=== PATIENT | female | born 1930 | race Caucasian/White ===

== ENCOUNTER 2017-02-11 10:58 | Emergency (ER) | payer BC, MEDICARE ==
[~2017-02-11] VITALS: Ht 162.6 cm; Wt 70.9 kg
[~2017-02-11 10:58] MED LIST: DIAZ-90 PO; DOCU-144 PO; ESOM40CA PO; HYDR-3498 PO; LEVO112T2 PO; MECL12.574 PO; MULT-761 PO; PRED20TA PO; SAXA5TAB2 PO; [UNRECOGNIZED DRUG - CODE]
[2017-02-11 11:01] VITALS: Ht 162.6 cm; Wt 70.9 kg
--- NOTE | 2017-02-11 11:46 | ERD ---
ER Documentation Chief Complaint Chief Complaint back pain, posterior head and right leg pain s/p fall 3 days ago HPI 86-year-old female, with history of ventricular shunt, presents to the emergency department complaining of mild persistent headache after a mechanical fall that occurred 3 days ago. The patient landed on her buttocks and hit her head without loss of consciousness. The patient denies blurred vision, nausea, vomiting. She has not tried any medications at this time. She is also complaining of mild right leg pain after the fall, 3 out of 10, but full range of motion. The patient has been ambulating without any problem and has been in her usual state of health but her PCP recommended her to come to the emergency department for a CAT scan to rule out SURVEILLANCE MONITOR bleeding ROS SYSTEMIC symptoms: no fever, chills, no night sweats, no weight loss EYE symptoms: No blurred vision, no eye discharge OTOLARYNGEAL symptoms: No hearing loss. No ear pain, no sore throat CARDIOVASCULAR symptoms: No chest pain or discomfort, no palpitations. PULMONARY symptoms: No dyspnea, no cough, no wheezing. GASTROINTESTINAL symptoms: No abdominal pain, no nausea, no vomiting, no diarrhea MUSCULOSKELETAL symptoms: No arthralgias, no muscle aches. NEUROLOGY symptoms: No confusion, no syncope, no numbness or tingling. SKIN: No rashes Medications Home Meds Active Scripts Acetaminophen* (Tylenol*) 325 Mg Tablet, 1 TAB PO Q6 Y for PAIN AND OR ELEVATED TEMP, #20 TAB Prov:DELANEY ARCOS MD 02/11/17 Meclizine Hcl* (Antivert*) 12.5 Mg Tab, 12.5 MG PO Q6H Y for DIZZINESS, #10 TAB Prov:HANG VAUGHN 08/04/15 Prednisone* (Prednisone*) 20 Mg Tab, 60 MG PO DAILY for 5 Days, TAB Prov:ANTONIETA BLACKBURN 04/23/15 Diazepam* (Valium*) 5 Mg Tablet, 5 MG PO Q8 Y for MUSCLE SPASMS, #10 TAB Prov:ANTONIETA BLACKBURN 04/23/15 Docusate Sodium* (Colace*) 100 Mg Capsule, 100 MG PO TID, #30 CAP Prov:ANTONIETA BLACKBURN 04/23/15 Hydrocodone Bit-Acetaminophen* (Sandy*) 5-325 Mg Tab, 1 TAB PO Q6 Y for PAIN, # 20 TAB Prov:ANTONIETA BLACKBURN 04/23/15 Reported Medications Multivitamin (MULTI VITAMIN DAILY) 1 Each Tablet, 1 TAB PO DAILY, TAB 04/23/15 Esomeprazole Mag Trihydrate (Nexium) 40 Mg Capsule.dr, 40 MG PO DAILY, #30 CAP 04/23/15 Levothyroxine Sodium* (Synthroid*) 112 Mcg Tablet, 112 MCG PO BEFORE BREAKFAST, #30 TAB 04/23/15 Saxagliptin Hcl* (Onglyza*) 5 Mg Tablet, 5 MG PO DAILY, TAB 04/23/15 Sodium Fluoride/Ca Carbonate (Florical Capsule) 1 Cap Capsule 09/30/09 Allergies Allergies: Coded Allergies: Sulfa (Sulfonamide Antibiotics) (Verified Allergy, Unknown, 04/23/15) PMhx/Soc History of Surgery: Yes (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 Alert and fully oriented. EYES: PERRLA, EOMI, Sclera and conjunctiva appear normal. EARS: Canals clear, tympanic membranes WNL THROAT: Normal oropharynx. NECK: Supple, No lymphadenopathy. Full ROM without pain or tenderness. HEART: RRR, no rubs, murmurs, clicks or gallops. LUNGS: Clear to auscultation. ABDOMEN: Soft, non-tender without masses or hepatosplenomegaly. EXTREMITIES: No edema bilaterally. BACK: Full ROM, no deformity, normal back exam NEURO: Cranial nerves grossly intact, no motor or sensory deficit Results [address] [address] Radiology Main Line: [phone] DIAGNOSTIC IMAGING REPORT Patient: GRAYSON STARR : 1930 Age: 86 Sex: F MR #: [id number] DOS: 02/11/17 1152 Ordering MD: DELANEY ARCOS MD Location: [facility] Room/Bed: PROCEDURE: CT Brain without contrast. CLINICAL INDICATION: Headaches. Neurologic deficit TECHNIQUE: A CT of the brain was performed on multidetector high-resolution CT scanner utilizing axial sections from the skull base through the vertex without contrast. One or more of the following dose reduction techniques were used: Automated exposure control, Adjustment of the mA and/or kV according to patient size, and/or use of iterative reconstruction technique. DICOM images are available. DOSE: CTDI = 45 mGy and the DLP = 720 mGy-cm. COMPARISON: Head CT 08/04/2015 FINDINGS: Right transfrontal ventricular shunt traverses the right lateral ventricle with tip in the frontal horn left lateral ventricle. Stable size ventricles when compared to 08/04/2015. Bifrontal horn lateral ventricular diameter measures 38 mm, unchanged. No acute intracranial hemorrhage, significant mass effect or midline shift. Patchy hypoattenuation of the cerebral white matter is compatible with chronic microvascular ischemic changes. Vascular calcifications. Mild cerebral volume loss. No significant opacification of the visualized paranasal sinuses or left mastoids. Right mastoidectomy changes with residual fluid in the right mastoid. IMPRESSION: No significant change identified since 08/04/2015. No acute intracranial findings. 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 Stable size ventricles with shunt in place. RPTAT: AA .Jacoby Albrecht MD, MD Date Time Electronically viewed and signed by .Jacoby Albrecht MD, MD on 02/11/2017 12:37 .T/ CC: DELANEY ARCOS MD Procedures/[facility] 86y/o female patient ventricular shunt, presents to the ED c/o headache for 3 days. Vital signs stable, Physical exam in normal limits, neurovascular exam intact. Differential diagnosis include but not limited to: Head concussion, contusion, intracranial hemorrhage. Low suspicion for severe SURVEILLANCE MONITOR trauma, since neurovascular exam is intact Pertinent Data: Radiology: CT head: IMPRESSION: No significant change identified since 08/04/2015. No acute intracranial findings. 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 Stable size ventricles with shunt in place. Physical examination and clinical presentation consistent most likely with mechanical fall with mild head contusion. During the ED course the patient remained stable, no new complaints Results and clinical impression discussed with patient who agrees with management. The patient is stable to be treated outpatient and will be discharged home with a Rx for acetaminophen and close monitoring Side effects of prescribed medications (headache, rash, nausea, vomiting, diarrhea) were reviewed. The patient was instructed to follow up with the primary care provider in the next 48h. If symptoms persist, worsen or new symptoms develop, then patient should return to the ED immediately. Instructions explained and given to patient in German with acknowledgment and demonstrated understanding. Disclaimer: Inadvertent spelling and grammatical errors are likely due to EHR/ dictation software use and do not reflect on the overall quality of patient care. Also, please note that the electronic time recorded on this note does not necessarily reflect the actual time of the patient encounter. Departure Diagnosis: Primary Impression: Head contusion Additional Impression: Fall with no significant injury Condition: Stable DELANEY ARCOS MD Feb 11, 2017 11:46
--- NOTE | 2017-02-11 12:37 | RADRPT ---
PROCEDURE: CT Brain without contrast. CLINICAL INDICATION: Headaches. Neurologic deficit TECHNIQUE: A CT of the brain was performed on multidetector high-resolution CT scanner utilizing a xial sections from the skull base through the vertex without contrast. One or more of the following dose reduction techniques were used: Automated exposure control, Adjustment of the mA and/or kV acc ording to patient size, and/or use of iterative reconstruction technique. DICOM images are available . DOSE: CTDI = 45 mGy and the DLP = 720 mGy-cm. COMPARISON: Head CT 08/04/2015 FINDINGS: Right transfrontal ventricular shunt traverses the right lateral ventricle with tip in the frontal h orn left lateral ventricle. Stable size ventricles when compared to 08/04/2015. Bifrontal horn later al ventricular diameter measures 38 mm, unchanged. No acute intracranial hemorrhage, significant mas s effect or midline shift. Patchy hypoattenuation of the cerebral white matter is compatible with ch ronic microvascular ischemic changes. Vascular calcifications. Mild cerebral volume loss. No sign ificant opacification of the visualized paranasal sinuses or left mastoids. Right mastoidectomy pereira ges with residual fluid in the right mastoid. IMPRESSION: No significant change identified since 08/04/2015. No acute intracranial findings. 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 Stable size ventricles with shunt in place. RPTAT: AA .Jacoby Albrecht MD, MD Date Time Electronically viewed and signed by .Jacoby Albrecht MD, MD on 02/11/2017 12:37 .T/
[2017-02-11] MEDS ORDERED: ACET325T33 PO (13:25)
[2017-02-11 13:50] VITALS: BP 130/82; PULSE 78; RESP 18; TEMP 98
== END 2017-02-11 13:50 | disposition home or self-care (01) ==
LOC: FTE 10:58
DX: S00.93XA Contusion of unspecified part of head, initial encounter (principal); W18.39XA Other fall on same level, initial encounter; Y92.9 Unspecified place or not applicable; Z85.3 Personal history of malignant neoplasm of breast
CPT/HCPCS: 70450

== ENCOUNTER 2018-12-13 19:31 | Emergency (ER) | payer MEDICARE, OTHER ==
[~2018-12-13] VITALS: Ht 167.6 cm; Wt 70.3 kg
[~2018-12-13 19:31] MED LIST changes: +ACET325T33 PO; +AMOX1TAB10 PO; +CYCL1DRO OP; -DIAZ-90 PO; +DIAZ5TAB PO; +INSU300I SQ; +LEVO112T57 ORAL; +METF-849 PO; +METR500T PO; +NITR-58 PO; +OLOP2.5D OP; +ONDA4TAB8 PO; +TIMO5SOL9 OP
[2018-12-13 19:34] VITALS: Ht 167.6 cm; Wt 70.3 kg
[2018-12-13] MEDS ORDERED: AMOXICILLIN/CLAV 875 MG TAB PO ONE (23:00)
[2018-12-13] MEDS ORDERED: metroNIDAZOLE 500 MG TAB PO ONE (23:00)
[2018-12-13 23:15] VITALS: BP 148/67; PULSE 76; RESP 18
== END 2018-12-13 23:23 | disposition home or self-care (01) ==
LOC: E/R 19:31
DX: K57.32 Diverticulitis of large intestine without perforation or abscess without bleeding (principal); E87.6 Hypokalemia; E11.9 Type 2 diabetes mellitus without complications; E03.9 Hypothyroidism, unspecified
CPT/HCPCS: 36415; 74176; 80053; 81003; 83690; 85025

== ENCOUNTER 2018-12-16 11:47 | Emergency (ER) | payer MEDICARE, OTHER ==
[~2018-12-16] VITALS: Ht 162.6 cm; Wt 70.3 kg
[2018-12-16 11:53] VITALS: Ht 162.6 cm; Wt 70.3 kg
[2018-12-16 13:43] VITALS: BP 149/62; PULSE 67; RESP 18
== END 2018-12-16 14:22 | disposition home or self-care (01) ==
LOC: E/R 11:47
DX: K92.1 Melena (principal); E11.9 Type 2 diabetes mellitus without complications; E03.9 Hypothyroidism, unspecified; R53.83 Other fatigue; Z79.84 Long term (current) use of oral hypoglycemic drugs
CPT/HCPCS: 36415; 80053; 85025; 85610; 85730; 99283